=== PATIENT | female | born 1940 | race Caucasian/White ===

== ENCOUNTER 2021-09-05 19:04 | Observation (INO) | payer MEDICARE, SELFPAY ==
--- NOTE | ~2021-09-05 | XR_ITS ---
EXAMINATION: XR chest 1V portable 09/05/2021 19:37 INDICATION: Midsternal chest pain PROCEDURE: AP portable chest COMPARISON: No prior studies for comparison. FINDINGS: The lungs are clear. The cardiomediastinal silhouette is within normal limits. There are no pleural effusions. There is no pneumothorax suspected. IMPRESSION: 1: NO ACUTE CARDIOPULMONARY DISEASE. Reviewed, dictated and finalized at location A. NAUTICAL ENGINEERING OFFICER
[2021-09-05 19:02] VITALS: BP 166/83; PULSE 71; RESP 16; TEMP 36.3; O2SAT 97
--- NOTE | 2021-09-05 19:07 | ECG_ITS ---
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
--- NOTE | 2021-09-05 19:09 | ED.CHESTPAIN ---
HPI - Chest Pain General Chief Complaint: Chest Pain Stated Complaint: Chest Discomfort Time Seen by Provider: 09/05/21 19:07 Source: RN notes reviewed History of Present Illness HPI narrative: Patient presents emergency department from home via EMS for chest pain. Patient states that pain began prior to arrival she states that she had eaten a meal and then about 30 minutes after the meal began to have midsternal chest pain states pain was located midsternal chest and described as a pressure and pulsing she states that pain lasted for approximately 30 minutes and is now resolved she states she did take Tums and aspirin at home she denies any previous cardiac history she denies any fevers or chills shortness of breath abdominal pain nausea vomiting or any other symptoms Related Data Allergies Allergy/AdvReac Type Severity Reaction Status Date / Time Cat Dander Allergy Intermediate Uncoded 09/05/11 00:45 Review of Systems Review of Systems: Gen.: Denies fevers or chills ENT: Denies congestion Respiratory: Denies shortness of breath or cough CV: See HPI GI: Denies abdominal pain nausea, emesis or diarrhea Musculoskeletal: Denies back pain or muscle pain Neuro: Denies numbness, tingling, weakness or focal weakness Skin: Denies rash Except as documented, all other systems reviewed and negative PMFSH Past Medical History Medical History (Updated 09/05/21 @ 21:26 by Quentin Urban DO) Hypercholesterolemia Social History Social History (Updated 09/05/21 @ 19:38 by Quentin Urban DO) Smoking status: Never smoker Exam Narrative: APPEARANCE: No acute distress, nontoxic, resting in bed EYES: EOMI HEENT: Normocephalic, atraumatic, OMM RESPIRATORY: No respiratory distress Clear to auscultation bilaterally with no rhonchi wheezing or rales. CARDIOVASCULAR: Regular rate and rhythm without murmurs rubs or gallops. ABDOMINAL: Soft, nontender, nondistended, no rebound or guarding MUSCULOSKELETAl: Moves all extremities. No clubbing, cyanosis or edema. NEURO: Awake and alert. Following commands, speech normal, no focal deficits SKIN:: Warm, dry. No rashes lesions or abrasions PSYCHIATRIC: Normal affect/mood, Course Course Emergency Course: Discussed with Dr. Viramontes agrees with consult Discussed with Dr. Campbell who agrees with admission Discussed with patient and family results of workup and diagnosis. Discussed need for admission. Patient and family understand and agree to current treatment plan Vital Signs Vital signs: Vital Signs Temperature 97.3 F L 09/05/21 19:02 Pulse Rate 71 09/05/21 19:02 Respiratory Rate 16 09/05/21 19:02 Blood Pressure 166/83 H 09/05/21 19:02 Pulse Oximetry 97 09/05/21 19:02 Temperature 97.3 F L 09/05/21 19:02 Pulse Rate 71 09/05/21 19:02 Respiratory Rate 16 09/05/21 19:02 Blood Pressure 166/83 H 09/05/21 19:02 Pulse Oximetry 98 09/05/21 19:10 MDM - Chest Pain Lab Data Result diagrams: 09/05/21 19:13 09/05/21 19:13 Labs: Lab Results 09/05/21 09/05/21 09/05/21 Range/Units 19:13 19:13 19:13 WBC 7.2 (4.5-10.0) K/mm3 RBC 4.07 L (4.2-5.4) M/mm3 Hgb 13.4 (12.0-15.0) g/dL Hct 38.7 (37.0-47.0) % MCV 95.1 (80-100) fl MCH 32.9 (26-34) pg MCHC 34.6 (32-36) g/dl RDW 11.9 (11.5-14.5) % Plt Count 182 (150-375) k/mm3 MPV 11.0 H (7.4-10.4) fl Immature Gran % (Auto) 0.1 (0-0.5) % Neut % (Auto) 55.1 (45.5-73.1) % Lymph % (Auto) 31.0 (18.3-44.2) % [place] % (Auto) 10.2 H (2.6-8.5) % Eos % (Auto) 2.6 (0-4.4) % Baso % (Auto) 1.0 (0.2-1.2) % Lymph # (Auto) 2.24 (0.9-3.2) K/mm3 [place] # (Auto) 0.7 H (0.1-0.6) K/mm3 Eos # (Auto) 0.2 (0-0.3) K/mm3 Baso # (Auto) 0.1 (0.0-0.1) K/mm3 Abs Immat Gran (auto) 0.01 (0.00-0.031) K/mm3 Absolute Neuts (auto) 4.0 (1.3-6.7) K/mm3 Absolute Nucleated RBC 0.0 (0.0-0.012) K/mm3 Nucleated R
[2021-09-05 19:10] VITALS: O2SAT 98
[2021-09-05 19:19] LABS: Basophils Absolute Auto 0.1 K/mm3 (0.0-0.1); Eosinophils Absolute Auto 0.2 K/mm3 (0-0.3); Eosinophils Percent Auto 2.6 % (0-4.4); Hematocrit 38.7 % (37.0-47.0); Hemoglobin 13.4 g/dL (12.0-15.0); Immature Granulocyte Absolute 0.01 K/mm3 (0.00-0.031); Immature Granulocyte Percent A 0.1 % (0-0.5); Lymphocytes Absolute Auto 2.24 K/mm3 (0.9-3.2); Mean Corpuscular HGB Conc 34.6 g/dl (32-36); Mean Corpuscular Hemoglobin 32.9 pg (26-34); Mean Corpuscular Volume 95.1 fl (80-100); Monocytes Absolute Auto 0.7 K/mm3 (0.1-0.6); Monocytes Percent Auto 10.2 % (2.6-8.5); Neutrophils Percent Auto 55.1 % (45.5-73.1); Platelet Count Result 182 k/mm3 (150-375); Red Blood Count 4.07 M/mm3 (4.2-5.4); Red Cell Distribution Width 11.9 % (11.5-14.5); White Blood Count 7.2 K/mm3 (4.5-10.0)
[2021-09-05 19:30] LABS: INR 0.9; Partial Thromboplastin Time 25.5 SECONDS (22.3-36.8); Prothrombin Time 12.3 Seconds (11.1-14.7)
[2021-09-05 19:32] LABS: Alanine Aminotransferase 28 U/L (4-35); Albumin Level 4.5 g/dL (3.5-5.1); Alkaline Phosphatase 49 U/L (38-126); Anion Gap 8 mmol/L (8-16); Aspartate Amino Transferase 34 U/L (14-36); Bilirubin,Total 0.5 mg/dL (0.2-1.3); Blood Urea Nitrogen 13 mg/dL (7-17); Calcium 9.5 mg/dL (8.4-10.2); Carbon Dioxide 26 mmol/L (22-30); Chloride 103 mmol/L (98-107); Estimated Glomerular Filt Rate > 60; Glucose 101 mg/dL (65-110); Lipase 137 U/L (23-300); Potassium 3.5 mmol/L (3.4-5.0); Sodium 137 mmol/L (137-145)
[2021-09-05 19:43] LABS: Troponin I < 0.012 ng/mL (0.000-0.034)
--- NOTE | 2021-09-05 21:20 | PM.IMHP ---
H&P: HPI History of Present Illness Date/Time: 09/05/21 21:20 Chief Complaint: Chest pain Narrative: This is an 81-year-old female with past medical history significant for hypothyroidism, dyslipidemia. Patient presented to the emergency room after she had a sudden onset chest pain while she was ingesting a meal states that the pain was at the retrosternal area upper 3rd with radiation to the right shoulder she denied any lightheadedness, dizziness, diaphoresis, cough, shortness of breath, vision changes, nausea or vomiting ,she was able to finish her meal and the pain reoccurred at which point she decided to come to the emergency room patient denies any issues she has been in her usual state of health no chest pain with activity, no PND ,no o,rthopnea no leg swelling, no claudication, no palpitations, no cough, no sputum production, no fevers, no rigors, no chills. Preliminary workup has been essentially nonrevealing. At the time of my visit patient denied any chest pain. Decision has been made to place the patient in observation for further assessment evaluation and treatment. Review of Systems Review of Systems: Chest pain while ingesting a meal. Constitutional: Constitutional: Denies chills, Denies excessive sweating, Denies fatigue, Denies fever(s), Denies malaise and Denies weakness Eyes: Eyes: Denies change in vision ENT: Denies dysphagia, Denies vertigo, Denies dizziness, Denies nasal congestion, Denies nasal discharge, Denies nasal obstruction, Denies neck pain and Denies odynophagia Cardiovascular: Cardiovascular: Reports chest pain, Denies claudication, Denies leg edema, Denies lightheadedness, Denies radiating jaw, neck or arm pain, Denies palpitations, Denies dyspnea on exertion and Denies orthopnea Respiratory: Respiratory: Denies cough, Denies excessive phlegm production, Denies dyspnea and Denies wheezing Gastrointestinal: Gastrointestinal: Denies abdominal pain, Denies dyspepsia, Denies heartburn, Denies nausea and Denies vomiting Genitourinary: Genitourinary: Denies dysuria Musculoskeletal: Musculoskeletal: Denies arthralgias and Denies joint swelling Integumentary/Breasts: Skin/Breast: Denies rash Neurologic: Denies vertigo, Denies dizziness, Denies focal weakness and Denies Sensory deficit (Neuro) Psychiatric: Psychiatric: Reports no additional psychiatric complaints and Reports as per HPI Endocrine: Endocrine: Reports no additional endocrine complaints and Reports as per HPI Hematologic/Lymphatic: Hematologic/Lymphatic: Reports no additional hematologic/lymphatic complaints and Reports as per HPI Allergic/Immunologic: Allergic/Immunologic: Reports no additional allergic/immunologic complaints and Reports as per HPI [facility] Past Medical History Medical History (Updated 09/05/21 @ 21:26 by Quentin Urban DO) Hypercholesterolemia Family History Family History (Updated 09/05/21 @ 22:58 by Sindhu Iraheta RN) Father Kidney infection Hemiparaplegic syndrome Cerebrovascular accident Angina of effort Heart disease Mother Rheumatoid arthritis Pneumonia Social History Social History (Updated 09/05/21 @ 19:38 by Quentin Urban DO) Smoking status: Never smoker Alcohol intake: current Drinks per week: 7 Substance use: never Spiritual care concerns: No Meds Home Medications and Allergies Home Medications Medication Instructions Recorded Confirmed Type aspirin 81 mg PO DAILY 09/05/21 09/05/21 History atorvastatin 40 mg PO DAILY 09/05/21 09/05/21 History levothyroxine 75 mcg PO DAILY 09/05/21 09/05/21 History Allergies Allergy/AdvReac Type Severity Reaction Status Date / Time Cat Dander Allergy Intermediate Uncoded 09/05/11 00:45 Vital Signs Vital Signs - 24 hr 09/05/21 19:02 09/05/21 19:10 Temperature 97.3 F L Pulse Rate 71 Respiratory Rate 16 Blood Pressure 166/83 H Pulse Oximetry 97 98 Exam Const: General: cooperative, comfortable, no a
[2021-09-05 22:11] VITALS: BP 132/62; PULSE 78; RESP 16; O2SAT 99
--- NOTE | 2021-09-05 22:15 | ADMGEN ---
This patient, Tamiko Cooper, was admitted to IMU Room 204-01 at 2215. Patient/family oriented to hospital policies and general routines including ID bracelet, bed and alarms, visiting hours, pain management, procedures, bathroom and other care routines, personal items, smoking policy, room service/diet, and visiting hours. Information on how to activate the Rapid Response Team has been discussed. Patient/Family are encouraged to report perceived risks to care and to ask questions if they do not understand what they are told or what they should do.
[2021-09-05 22:30] VITALS: PULSE 76; RESP 16; O2SAT 99; BMI 32.1
[2021-09-05 22:56] VITALS: BP 164/83; PULSE 81; RESP 20; TEMP 36.2; O2SAT 99
[2021-09-06] VITALS (7 sets, daily range): BP systolic 143–148; BP diastolic 71–76; PULSE 66–82; RESP 16–20; TEMP 36.4–36.7; O2SAT 97–99
[2021-09-06 00:21] LABS: Troponin I < 0.012 ng/mL (0.000-0.034)
[2021-09-06 02:42] LABS: Basophils Absolute Auto 0.1 K/mm3 (0.0-0.1); Eosinophils Absolute Auto 0.2 K/mm3 (0-0.3); Eosinophils Percent Auto 2.6 % (0-4.4); Hematocrit 37.3 % (37.0-47.0); Hemoglobin 12.7 g/dL (12.0-15.0); Immature Granulocyte Absolute 0.02 K/mm3 (0.00-0.031); Immature Granulocyte Percent A 0.2 % (0-0.5); Lymphocytes Absolute Auto 2.37 K/mm3 (0.9-3.2); Lymphocytes Percent Auto 29.3 % (18.3-44.2); Mean Corpuscular Hemoglobin 32.2 pg (26-34); Mean Corpuscular Volume 94.4 fl (80-100); Monocytes Absolute Auto 0.9 K/mm3 (0.1-0.6); Monocytes Percent Auto 10.5 % (2.6-8.5); Neutrophils Absolute Auto 4.6 K/mm3 (1.3-6.7); Neutrophils Percent Auto 56.4 % (45.5-73.1); Platelet Count Result 170 k/mm3 (150-375); Red Blood Count 3.95 M/mm3 (4.2-5.4); White Blood Count 8.1 K/mm3 (4.5-10.0)
[2021-09-06 02:58] LABS: Alanine Aminotransferase 26 U/L (4-35); Alkaline Phosphatase 49 U/L (38-126); Anion Gap 5 mmol/L (8-16); Aspartate Amino Transferase 31 U/L (14-36); Bilirubin,Total 0.4 mg/dL (0.2-1.3); Blood Urea Nitrogen 15 mg/dL (7-17); Calcium 9.6 mg/dL (8.4-10.2); Carbon Dioxide 27 mmol/L (22-30); Chloride 105 mmol/L (98-107); Estimated CRCL calculation 57 ml/min; Estimated Glomerular Filt Rate > 60; Glucose 107 mg/dL (65-110); Sodium 137 mmol/L (137-145)
[2021-09-06 03:10] LABS: Troponin I < 0.012 ng/mL (0.000-0.034)
--- NOTE | 2021-09-06 09:11 | PM.IMPN ---
Subjective Date/time seen: 09/06/21 09:11 Objective Data Vital Signs Vital Signs: Vital Signs - 24 hr 09/05/21 19:02 09/05/21 19:10 09/05/21 22:11 Temperature 97.3 F L Pulse Rate 71 78 Respiratory Rate 16 16 Blood Pressure 166/83 H 132/62 Pulse Oximetry 97 98 99 09/05/21 22:30 09/05/21 22:56 09/06/21 00:00 Temperature 97.2 F L Pulse Rate 76 81 82 Respiratory Rate 16 20 20 Blood Pressure 164/83 H Pulse Oximetry 99 99 99 09/06/21 02:00 09/06/21 03:32 09/06/21 04:00 Temperature 97.6 F Pulse Rate 69 68 68 Respiratory Rate 20 20 Blood Pressure 143/71 H Pulse Oximetry 99 99 09/06/21 06:00 09/06/21 08:00 Temperature 98.1 F Pulse Rate 66 66 Respiratory Rate 16 Blood Pressure 148/73 H Pulse Oximetry 97 Intake/Output Intake/Output: Intake & Output 09/03/21 09/04/21 09/05/21 09/06/21 23:59 23:59 23:59 23:59 Output Total 400 Balance -400 Meds/Results Medications: Active Medications Generic Name Dose Route Start Last Admin Trade Name Freq PRN Reason Stop Dose Admin Atorvastatin Calcium 40 mg 09/07/21 09:00 Atorvastatin 40 Mg Tablet PO DAILY [facility] Levothyroxine Sodium 75 mcg 09/07/21 09:00 Levothyroxine Sodium 75 Mcg Tablet PO DAILY [facility] Non-Formulary Medication 81 mg 09/07/21 09:00 Aspirin PO 10/07/21 08:59 DAILY [facility] Radiology Results: ITS Impressions Chest X-Ray 09/05/21 19:39 IMPRESSION: 1: NO ACUTE CARDIOPULMONARY DISEASE. Labs Labs: Laboratory Results - last 24 hr 09/05/21 09/05/21 09/05/21 19:13 19:13 19:13 WBC 7.2 RBC 4.07 L Hgb 13.4 Hct 38.7 MCV 95.1 MCH 32.9 MCHC 34.6 RDW 11.9 Plt Count 182 MPV 11.0 H Immature Gran % (Auto) 0.1 Neut % (Auto) 55.1 Lymph % (Auto) 31.0 [place] % (Auto) 10.2 H Eos % (Auto) 2.6 Baso % (Auto) 1.0 Lymph # (Auto) 2.24 [place] # (Auto) 0.7 H Eos # (Auto) 0.2 Baso # (Auto) 0.1 Abs Immat Gran (auto) 0.01 Absolute Neuts (auto) 4.0 Absolute Nucleated RBC 0.0 Nucleated RBC % 0.0 PT 12.3 INR 0.9 APTT 25.5 Sodium 137 Potassium 3.5 Chloride 103 Carbon Dioxide 26 Anion Gap 8 BUN 13 Creatinine 0.80 Estim Creat Clear Calc Not Reportable Estimated GFR > 60 Glucose 101 Calcium 9.5 Total Bilirubin 0.5 AST 34 ALT 28 Alkaline Phosphatase 49 Troponin I < 0.012 Total Protein 7.0 Albumin 4.5 Lipase 137 09/05/21 09/06/21 09/06/21 23:45 02:36 02:36 WBC 8.1 RBC 3.95 L Hgb 12.7 Hct 37.3 MCV 94.4 MCH 32.2 MCHC 34.0 RDW 12.0 Plt Count 170 MPV 11.0 H Immature Gran % (Auto) 0.2 Neut % (Auto) 56.4 Lymph % (Auto) 29.3 [place] % (Auto) 10.5 H Eos % (Auto) 2.6 Baso % (Auto) 1.0 Lymph # (Auto) 2.37 [place] # (Auto) 0.9 H Eos # (Auto) 0.2 Baso # (Auto) 0.1 Abs Immat Gran (auto) 0.02 Absolute Neuts (auto) 4.6 Absolute Nucleated RBC 0.0 Nucleated RBC % 0.0 PT INR APTT Sodium 137 Potassium 4.0 Chloride 105 Carbon Dioxide 27 Anion Gap 5 L BUN 15 Creatinine 0.70 Estim Creat Clear Calc 57 Estimated GFR > 60 Glucose 107 Calcium 9.6 Total Bilirubin 0.4 AST 31 ALT 26 Alkaline Phosphatase 49 Troponin I < 0.012 < 0.012 Total Protein 7.0 Albumin 4.0 Lipase
--- NOTE | 2021-09-06 13:04 | PM.CNCAR ---
Assessment and Plan Additional Plan atypical chest pain, Hx of TIA and hypothyroidism, negative enzymes and EKG plan ordered stress test but patient wanted her work up to be done in [facility] and wanted to leave for future f/u in [place] History of Present Illness History of Present Illness Consult date/time: 09/06/21 13:04 Reason For Visit: Chest Pain Narrative: Patient presented with acute upper chest discomfort that radiates to neck associated with belching. She lives near [place] and her care has been in [facility]. She reported recent HX of TIA. ehad priuor cardiac work up several years ago and was unremarkable. Review of Systems Review of Systems: All systems reviewed & are unremarkable except as noted in HPI and below PMFSH Past Medical History Medical History (Updated 09/05/21 @ 21:26 by Quentin Urban DO) Hypercholesterolemia Family History Family History (Updated 09/05/21 @ 22:58 by Sindhu Iraheta RN) Father Kidney infection Hemiparaplegic syndrome Cerebrovascular accident Angina of effort Heart disease Mother Rheumatoid arthritis Pneumonia Social History Social History (Updated 09/05/21 @ 19:38 by Quentin Urban DO) Smoking status: Never smoker Alcohol intake: current Drinks per week: 7 Substance use: never Spiritual care concerns: No Meds Home Medications and Allergies Home Medications Medication Instructions Recorded Confirmed Type aspirin 81 mg PO DAILY 09/05/21 09/05/21 History atorvastatin 40 mg PO DAILY 09/05/21 09/05/21 History levothyroxine 75 mcg PO DAILY 09/05/21 09/05/21 History Allergies Allergy/AdvReac Type Severity Reaction Status Date / Time Cat Dander Allergy Intermediate Uncoded 09/05/11 00:45 Vital Signs Vital Signs - 24 hr 09/05/21 19:02 09/05/21 19:10 09/05/21 22:11 Temperature 36.3 C L Pulse Rate 71 78 Respiratory Rate 16 16 Blood Pressure 166/83 H 132/62 Pulse Oximetry 97 98 99 09/05/21 22:30 09/05/21 22:56 09/06/21 00:00 Temperature 36.2 C L Pulse Rate 76 81 82 Respiratory Rate 16 20 20 Blood Pressure 164/83 H Pulse Oximetry 99 99 99 09/06/21 02:00 09/06/21 03:32 09/06/21 04:00 Temperature 36.4 C Pulse Rate 69 68 68 Respiratory Rate 20 20 Blood Pressure 143/71 H Pulse Oximetry 99 99 09/06/21 06:00 09/06/21 08:00 Temperature 36.7 C Pulse Rate 66 66 Respiratory Rate 16 Blood Pressure 148/73 H Pulse Oximetry 97 Exam Const: General: comfortable and no acute distress Other: Able to lie flat HENMT: General nose exam: Normal nares present and no epistaxis Mouth: Yes moist mucous membranes Eyes: Sclera: sclerae normal Pupils: Equal, round and reactive pupils present Neck: Neck: supple and no JVD Carotids: no bruits Resp: Auscultation: clear to auscultation bilaterally and lung sounds not diminished Other: No chest wall tenderness Cardio: Rate: regular rate Rhythm: regular rhythm Heart sounds: no gallops, no murmurs and no rubs GI: GI Palp: Yes Soft to palpation and No Tenderness to palpation present (GI) Auscultation: normal bowel sounds Skin: General skin exam: normal color, rashes and/or lesions noted and no erythema Other: Warm Neuro: Cranial nerves: Yes Equal, round and reactive pupils present Speech: normal speech Other: No obvious focal deficit or facial asymmetry Extrem: General: no edema Other: Normal capillary refills Intact distal pulses. Results Labs and Meds Result diagrams: 09/06/21 02:36 09/06/21 02:36 Lab results: Cardiac Enzymes 09/05/21 09/05/21 09/06/21 Range/Units 19:13 23:45 02:36 AST 34 31 (14-36) U/L Troponin I < 0.012 < 0.012 < 0.012 (0.000-0.034) ng/mL Coagulation 09/05/21 Range/Units 19:13 PT 12.3 (11.1-14.7) Seconds APTT 25.5 (22.3-36.8) SECONDS CBC 09/05/21 09/06/21 Range/Units 19:13 02:36 WBC 7.2 8.1 (4.5-10.0) K/mm3 RBC 4.07 L
--- NOTE | 2021-09-06 14:14 | PM.DS ---
DS: Admitting Diagnosis Discharge Date 09/06/2021 Admitting Diagnosis Chest Pain DS: Discharge Diagnosis Discharge Diagnosis (1) Chest pain: Code(s): R07.9 - Chest pain, unspecified Status: Acute Assessment and Plan: Hx of TIA 08/23/2021 with chest pain. Troponin negative x3. CXR with no acute process. EKG NSR. Cardiology consulted and wanted to perform lexican but patient declined preferring to follow up with her established Supervisor Pipeline Maintenance at [facility] in [place], [place]. CP have resolved. Of note during interview today patient endorses GERD symptoms. -Famotidine 10 mg BID -Continue home atorvastatin and ASA 81 -Follow up with [facility] Cardiology (2) Hypercholesterolemia: Code(s): E78.00 - Pure hypercholesterolemia, unspecified Status: Acute Assessment and Plan: On atorvastatin 40 mg daily. Continue home medication. (3) TIA (transient ischemic attack): Code(s): G45.9 - Transient cerebral ischemic attack, unspecified Status: Inactive Assessment and Plan: Hx of TIA on 08/23/2021. Patient planned for MRI brain and TTE w/ [facility] Cardiology on 09/23/2021 and 09/24/2021. Continue asa and statin. DS: Summary Hospital Course Hospital Course: Patient with a hx of recent TIA presented to the ED with chest pain and was admitted. Troponin remained 0.12 x 3. EKG showed NSR and CXR showed no acute process. Patient was offered a lexiscan by Cardiology, but patient declined preferring to follow up with her museum technician in [place], [place]. Time Spent with Patient Time attestation: Total time spent providing and/or coordinating discharge services: 30 Exam Narrative: GENERAL: NAD, cooperative HEENT: Normocephalic, atraumatic, anicteric, nares clear NECK: Supple CV: Normal S1, S2, RRR, No MRG RESP: CTAB, Normal work of breathing. Abdomen: Soft, non-tender, non-distended, +BS EXTREMITIES: Warm and well perfused, no clubbing, cyanosis, or edema. SKIN: warm, dry and intact. NEURO: CN 2-12 grossly intact DS: Data Data Completed and Pending Labs on day of discharge: Labs from last 24 hours 09/06/21 09/06/21 09/05/21 02:36 02:36 23:45 WBC 8.1 RBC 3.95 L Hgb 12.7 Hct 37.3 MCV 94.4 MCH 32.2 MCHC 34.0 RDW 12.0 Plt Count 170 MPV 11.0 H Immature Gran % (Auto) 0.2 Neut % (Auto) 56.4 Lymph % (Auto) 29.3 [place] % (Auto) 10.5 H Eos % (Auto) 2.6 Baso % (Auto) 1.0 Lymph # (Auto) 2.37 [place] # (Auto) 0.9 H Eos # (Auto) 0.2 Baso # (Auto) 0.1 Abs Immat Gran (auto) 0.02 Absolute Neuts (auto) 4.6 Absolute Nucleated RBC 0.0 Nucleated RBC % 0.0 PT INR APTT Sodium 137 Potassium 4.0 Chloride 105 Carbon Dioxide 27 Anion Gap 5 L BUN 15 Creatinine 0.70 Estim Creat Clear Calc 57 Estimated GFR > 60 Glucose 107 Calcium 9.6 Total Bilirubin 0.4 AST 31 ALT 26 Alkaline Phosphatase 49 Troponin I < 0.012 < 0.012 Total Protein 7.0 Albumin 4.0 Lipase 09/05/21 09/05/21 09/05/21 19:13 19:13 19:13 WBC 7.2 RBC 4.07 L Hgb 13.4 Hct 38.7 MCV 95.1 MCH 32.9 MCHC 34.6 RDW 11.9 Plt Count 182 MPV 11.0 H Immature Gran % (Auto) 0.1 Neut % (Auto) 55.1 Lymph % (Auto) 31.0 [place] % (Auto) 10.2 H Eos % (Auto) 2.6 Baso % (Auto) 1.0 Lymph # (Auto) 2.24 [place] # (Auto) 0.7 H Eos # (Auto) 0.2 Baso # (Auto) 0.1 Abs Immat Gran (auto) 0.01 Absolute Neuts (auto) 4.0 Absolute Nucleated RBC 0.0 Nucleated RBC % 0.0 PT 12.3 INR 0.9 APTT 25.5 Sodium 137 Potassium 3.5 Chloride 103 Carbon Dioxide 26 Anion Gap 8 BUN 13 Creatinine 0.80 Estim Creat Clear Calc Not Reportable Estimated GFR > 60 Glucose 101 Calcium 9.5 Total Bilirubin 0.5 AST 34 ALT 28 Alkaline Phosphatase 49 Troponin I < 0.012 Total Protein 7.0 Alb
[2021-09-06] MEDS: FAMOTIDINE 10 MG TABLET PO (15:29)
[2021-09-06] MEDS: ATORVASTATIN 40 MG TABLET PO (15:29)
[2021-09-06] MEDS: ASPIRIN 81 MG ENTERIC TABLET PO (15:29)
== END 2021-09-06 15:32 | disposition home or self-care (01) ==
LOC: ANHED 21:26 → ANHIMU 09-06 10:27
PROVIDERS: Admitting Provider Internal Medicine; Emergency Provider Emergency Medicine; Visit Provider Family Medicine
DX: R07.9 Chest pain, unspecified (principal); E03.9 Hypothyroidism, unspecified; E78.5 Hyperlipidemia, unspecified; R07.89 Other chest pain; Z86.73 Personal history of transient ischemic attack (TIA), and cerebral infarction without residual deficits
CPT/HCPCS: 36415; 71045; 80053; 83690; 84484; 85025; 85610; 85730; 93005; 99285; A9270; G0378